=== PATIENT | male | born 1980 | race Caucasian/White ===

== ENCOUNTER → 2017-12-13 | Day surgery (SDC) | payer OTHER ==
[~2017-12-13] MED LIST: ALLE30TA3 PO; CIPR500T2 PO; DARV PO; LACTATED RINGER'S 1000 ML INJ 1,000 ML ONE; METR-1 PO; PROPOFOL 500 MG/50 ML BTL IV ONE
== END | disposition home or self-care (01) ==
LOC: ESDC 09:46
PROVIDERS: ATTEND Internal Medicine Gastroenterology
DX: R12 Heartburn (principal); K20.9 Esophagitis, unspecified; K31.9 Disease of stomach and duodenum, unspecified; K29.80 Duodenitis without bleeding
CPT/HCPCS: 00731; 43239; 88305; J3010; J7120; 88312